=== PATIENT | male | born 1950 | race Caucasian/White ===

== ENCOUNTER 2020-06-21 09:17 | Day surgery (SDC) | payer OTHER ==
[2020-06-19 10:45] VITALS: BMI 24.4
[2020-06-21] MEDS ORDERED: PROPOFOL 20 ML ONE ×3 (10:25)
[2020-06-21] MEDS ORDERED: LIDOCAINE HCL/PF 2% SDV 5ML VIAL ONE (10:25)
[2020-06-21 13:33] VITALS: TEMP 97.6
[2020-06-21 13:38] VITALS: BP 128/76; PULSE 62
== END 2020-06-21 11:50 | disposition home or self-care (01) ==
LOC: FASU-ENDO 09:17
PROVIDERS: ATTEND Internal Medicine Gastroenterology
PROC: 0DJD8ZZ Inspection of Lower Intestinal Tract, Via Natural or Artificial Opening Endoscopic (ICD-10-PCS; principal; 2020-06-21 10:33)
DX: Z12.11 Encounter for screening for malignant neoplasm of colon (principal); R19.5 Other fecal abnormalities; K57.30 Diverticulosis of large intestine without perforation or abscess without bleeding; K64.8 Other hemorrhoids